=== PATIENT | female | born 1975 | race African-American/Black ===

== ENCOUNTER 2017-04-20 17:28 | Emergency (ER) | payer OTHER, MEDICAID ==
[~2017-04-20] VITALS: Ht 160 cm; Wt 56.7 kg
[2017-04-20 18:34] LABS: INFLUENZA A ANTIGEN None Detected (None Detect); INFLUENZA B ANTIGEN None Detected (None Detect)
[2017-04-20 18:47] VITALS: BP 125/68
== END 2017-04-20 18:48 | disposition home or self-care (01) ==
LOC: M.ERS 17:28
PROVIDERS: Emergency Medicine
DX: B34.9 Viral infection, unspecified (principal); F17.200 Nicotine dependence, unspecified, uncomplicated